=== PATIENT | female | born 1960 | race Caucasian/White ===

== ENCOUNTER → 2017-11-08 | Outpatient (CLI) | payer OTHER ==
[2017-11-04 11:34] LABS: T3 TOTAL 1.27 ng/mL
[2017-11-04 11:35] LABS: ALBUMIN 3.5 g/dL (3.4-5.0); ALKALINE PHOSPHATASE 80 U/L (46-116); ALT/SGPT 30 U/L (14-59); AST/SGOT 21 U/L (15-37); BILIRUBIN TOTAL 0.4 mg/dL (0.20-1.00); CALCIUM 8.3 mg/dL (8.5-10.1); CARBON DIOXIDE 29.2 mmol/L (21-32); CHLORIDE SERUM 106 mmol/L (98-107); CHOLESTEROL 168 mg/dL (<200); CHOLESTEROL/HDL RATIO 3.2; CREATININE SERUM 0.5 mg/dL (0.6-1.0); GFR1 > 60 mL/min; GLUCOSE SERUM 97 mg/dL (74-106); HDL CHOLESTEROL 52 mg/dL (40-60); POTASSIUM SERUM 3.8 mmol/L (3.5-5.1); SODIUM SERUM 141 mmol/L (136-145); TOTAL PROTEIN, SERUM 7.5 g/dL (6.4-8.2); TRIGLYCERIDES 105 mg/dL (<150)
[2017-11-04 11:43] LABS: FREE T4 1.13 ng/dL (0.76-1.46); FREE THYROXINE INDEX 3.1 ug/dL (1.4-4.5); T4(THYROXINE) 9.6 ug/dL (4.7-13.3)
[2017-11-04 11:45] LABS: PLATELET COUNT 309 x10^3mcL (130-400); RED CELL DISTRIBUTION WIDTH 14.3 % (11.5-14.5)
[2017-11-04 11:46] LABS: BASOPHIL % 0.5 % (0-2)
== END | disposition home or self-care (01) ==
LOC: MA 14:31
PROVIDERS: Internal Medicine
PROC: BH02ZZZ Plain Radiography of Bilateral Breasts (ICD-10-PCS; principal; 2017-11-08)
DX: Z12.31 Encounter for screening mammogram for malignant neoplasm of breast (principal); I10 Essential (primary) hypertension; D64.9 Anemia, unspecified; E78.4 Other hyperlipidemia; E03.9 Hypothyroidism, unspecified; E55.9 Vitamin D deficiency, unspecified; R73.09 Other abnormal glucose
CPT/HCPCS: 84439; G0202

== ENCOUNTER 2018-11-23 11:15 | Emergency (ER) | payer OTHER ==
[~2018-11-23] VITALS: Ht 157.5 cm; Wt 113.4 kg
[2018-11-23 11:22] VITALS: Ht 157.5 cm; Wt 113.4 kg
[2018-11-23 14:08] VITALS: BP 158/91
== END 2018-11-23 14:17 | disposition home or self-care (01) ==
LOC: ED 11:15
DX: J20.9 Acute bronchitis, unspecified (principal)
CPT/HCPCS: J7512; J7613; J7644

== ENCOUNTER 2018-12-10 13:45 | Emergency (ER) | payer OTHER ==
[~2018-12-10] VITALS: Ht 157.5 cm; Wt 113.4 kg
[2018-12-10 14:38] VITALS: BP 138/113; Ht 157.5 cm; Wt 113.4 kg
== END 2018-12-10 16:08 | disposition home or self-care (01) ==
LOC: ED 13:45
DX: J98.01 Acute bronchospasm (principal); Z90.710 Acquired absence of both cervix and uterus
CPT/HCPCS: J7512; J7613; Q0092

== ENCOUNTER → 2018-12-24 | Outpatient (CLI) | payer OTHER ==
[2018-12-24 07:52] LABS: BASOPHIL % 0.7 % (0-2); PLATELET COUNT 359 x10^3mcL (130-400); RED CELL DISTRIBUTION WIDTH 15.2 % (11.5-14.5)
[2018-12-24 08:23] LABS: ALBUMIN 3.5 g/dL (3.4-5.0); ALKALINE PHOSPHATASE 92 U/L (46-116); ALT/SGPT 31 U/L (14-59); AST/SGOT 21 U/L (15-37); BILIRUBIN TOTAL 0.42 mg/dL (0.20-1.00); CALCIUM 8.7 mg/dL (8.5-10.1); CHLORIDE SERUM 105 mmol/L (98-107); CHOLESTEROL 161 mg/dL (<200); CHOLESTEROL/HDL RATIO 3.2; CREATININE SERUM 0.6 mg/dL (0.6-1.0); GFR1 > 60 mL/min; GLUCOSE SERUM 106 mg/dL (74-106); HDL CHOLESTEROL 50 mg/dL (40-60); POTASSIUM SERUM 3.9 mmol/L (3.5-5.1); SODIUM SERUM 143 mmol/L (136-145); TOTAL PROTEIN, SERUM 7.2 g/dL (6.4-8.2); TRIGLYCERIDES 86 mg/dL (<150)
[2018-12-25 09:17] LABS: RAPID PLASMA REAGIN Non Reactive (Non Reactive)
== END | disposition home or self-care (01) ==
LOC: MA 07:11
PROC: BH02ZZZ Plain Radiography of Bilateral Breasts (ICD-10-PCS; principal; 2018-12-24)
DX: Z12.31 Encounter for screening mammogram for malignant neoplasm of breast (principal); I11.9 Hypertensive heart disease without heart failure
CPT/HCPCS: 77067

== ENCOUNTER → 2019-01-31 | Outpatient (CLI) | payer OTHER ==
[2019-01-31 10:52] LABS: BASOPHIL % 0.7 % (0-2); PLATELET COUNT 319 x10^3mcL (130-400)
[2019-01-31 10:59] LABS: RED CELL DISTRIBUTION WIDTH 15.4 % (11.5-14.5)
[2019-01-31 11:10] LABS: ALBUMIN 3.6 g/dL (3.4-5.0); ALKALINE PHOSPHATASE 101 U/L (46-116); ALT/SGPT 24 U/L (14-59); AST/SGOT 20 U/L (15-37); BILIRUBIN DIRECT 0.12 mg/dL (0.0-0.2); BILIRUBIN TOTAL 0.45 mg/dL (0.20-1.00); CALCIUM 8.5 mg/dL (8.5-10.1); CARBON DIOXIDE 31.1 mmol/L (21-32); CHLORIDE SERUM 106 mmol/L (98-107); CHOLESTEROL 139 mg/dL (<200); CHOLESTEROL/HDL RATIO 2.5; CREATININE SERUM 0.6 mg/dL (0.6-1.0); GFR1 > 60 mL/min; GLUCOSE SERUM 102 mg/dL (74-106); HDL CHOLESTEROL 55 mg/dL (40-60); SODIUM SERUM 142 mmol/L (136-145); TOTAL PROTEIN, SERUM 6.9 g/dL (6.4-8.2); TRIGLYCERIDES 47 mg/dL (<150)
== END | disposition home or self-care (01) ==
LOC: LB 10:25
PROVIDERS: Internal Medicine
DX: Z00.00 Encounter for general adult medical examination without abnormal findings (principal)

== ENCOUNTER → 2019-12-28 | Outpatient (CLI) | payer OTHER ==
[2019-12-28 08:47] LABS: ALBUMIN 3.6 g/dL (3.4-5.0); ALKALINE PHOSPHATASE 103 U/L (46-116); ALT/SGPT 28 U/L (14-59); AST/SGOT 19 U/L (15-37); BILIRUBIN TOTAL 0.39 mg/dL (0.20-1.00); CALCIUM 8.8 mg/dL (8.5-10.1); CARBON DIOXIDE 31.5 mmol/L (21-32); CHLORIDE SERUM 106 mmol/L (98-107); CHOLESTEROL 169 mg/dL (<200); CHOLESTEROL/HDL RATIO 3.4; CREATININE SERUM 0.6 mg/dL (0.6-1.0); GFR1 > 60 mL/min; GLUCOSE SERUM 100 mg/dL (74-106); HDL CHOLESTEROL 50 mg/dL (40-60); POTASSIUM SERUM 4.1 mmol/L (3.5-5.1); SODIUM SERUM 141 mmol/L (136-145); TOTAL PROTEIN, SERUM 7.5 g/dL (6.4-8.2); TRIGLYCERIDES 68 mg/dL (<150)
[2019-12-28 08:50] LABS: ALBUMIN 3.7 g/dL (3.4-5.0); BILIRUBIN DIRECT 0.09 mg/dL (0.0-0.2); BILIRUBIN TOTAL 0.37 mg/dL (0.20-1.00)
[2019-12-28 09:36] LABS: BASOPHIL % 0.4 % (0-2); PLATELET COUNT 324 x10^3mcL (130-400); RED CELL DISTRIBUTION WIDTH 14.1 % (11.5-14.5)
== END | disposition home or self-care (01) ==
LOC: MA 07:21
PROVIDERS: Internal Medicine
PROC: BH02ZZZ Plain Radiography of Bilateral Breasts (ICD-10-PCS; principal; 2019-12-28)
DX: Z00.00 Encounter for general adult medical examination without abnormal findings (principal); Z12.31 Encounter for screening mammogram for malignant neoplasm of breast
CPT/HCPCS: 77067

== ENCOUNTER → 2021-01-03 | Outpatient (CLI) | payer OTHER ==
[2021-01-03 07:32] LABS: BASOPHIL % 0.9 % (0.2-1.3); PLATELET COUNT 318 x10^3mcL (179-408); RED CELL DISTRIBUTION WIDTH 14.5 % (12.3-17.7)
[2021-01-03 08:02] LABS: ALBUMIN 3.8 g/dL (3.4-5.0); ALKALINE PHOSPHATASE 109 U/L (46-116); ALT/SGPT 38 U/L (14-59); AST/SGOT 32 U/L (15-37); BILIRUBIN TOTAL 0.36 mg/dL (0.20-1.00); CALCIUM 8.4 mg/dL (8.5-10.1); CARBON DIOXIDE 30.1 mmol/L (21-32); CHLORIDE SERUM 104 mmol/L (98-107); CHOLESTEROL 166 mg/dL (<200); CHOLESTEROL/HDL RATIO 2.9; CREATININE SERUM 0.7 mg/dL (0.6-1.0); GFR1 > 60 mL/min; GLUCOSE SERUM 108 mg/dL (74-106); HDL CHOLESTEROL 57 mg/dL (40-60); POTASSIUM SERUM 4.1 mmol/L (3.5-5.1); SODIUM SERUM 140 mmol/L (136-145); TOTAL PROTEIN, SERUM 7.7 g/dL (6.4-8.2); TRIGLYCERIDES 73 mg/dL (<150)
[2021-01-03 08:56] LABS: FREE T4 1.16 ng/dL (0.76-1.46); FREE THYROXINE INDEX 3.5 ug/dL (1.4-4.5); T4(THYROXINE) 10.6 ug/dL (4.7-13.3)
[2021-01-03 09:07] LABS: T3 TOTAL 1.33 ng/mL
== END | disposition home or self-care (01) ==
LOC: LB 06:12
PROVIDERS: ATTEND Family Medicine
DX: R23.4 Changes in skin texture (principal)
CPT/HCPCS: 77066; 84439